=== PATIENT | male | born 1960 | race Caucasian/White ===

== ENCOUNTER 2018-05-08 18:33 | Observation (INO) | payer OTHER ==
[~2018-05-08] VITALS: Ht 185.4 cm; Wt 90.7 kg
[~2018-05-08 18:33] MED LIST: Accupril40 MG PO; CEPH500 PO; Dicyclomine HCl10 MG PO; HYDR25SUP PR; Hydrocodone-Ap1 EA20 PO; LISI5 PO; Naprosyn500 MG PO; Norco 5-325 Ta1 EACH PO; Norco 7.5-3251 EACH PO; OMEP40CA12 PO; OXYC5; Percocet 10-321 EACH PO; Percocet 5-3251 EACH PO; Procto-Kit28.35 G1 PR; SUCR1 PO; Veetids 500500 MG PO; Zofran Odt4 MG SL; Zofran4 MG PO
[2018-05-08 19:29] LABS: BASOPHILS ABSOLUTE AUTO 0.05 K/mm3 (0.00-0.23); BASOPHILS PERCENT AUTO 1 % (0-2); EOSINOPHILS ABSOLUTE AUTO 0.21 K/mm3 (0.00-0.68); EOSINOPHILS PERCENT AUTO 3 % (0-6); Hematocrit 46.7 % (37.0-53.0); Hemoglobin 15.5 g/dL (13.5-17.5); IMMATURE GRAN ABSOLUTE AUTO 0.02 K/mm3 (0.00-0.10); IMMATURE GRAN PERCENT AUTO 0 % (0-1); LYMPHOCYTES ABSOLUTE AUTO 1.48 K/mm3 (0.84-5.20); LYMPHOCYTES PERCENT AUTO 18 % (21-46); MONOCYTES ABSOLUTE AUTO 0.95 K/mm3 (0.16-1.47); MONOCYTES PERCENT AUTO 12 % (4-13); Mean Corpuscular HGB 29.2 pg (26.0-34.0); Mean Corpuscular HGB Conc 33.2 g/dL (31.5-36.5); Mean Corpuscular Volume 88 fL (80-100); Mean Platelet Volume 9.3 fL (9.1-12.4); NEUTROPHILS ABSOLUTE AUTO 5.35 K/mm3 (1.96-9.15); NEUTROPHILS PERCENT AUTO 66 % (41-73); Platelet Count 287 K/mm3 (150-400); RDW Coefficient Variation 13.4 % (11.7-14.2); RDW Standard Deviation 43.3 fL (35.1-46.3); White Blood Cell Count 8.06 K/mm3 (4.00-11.30)
[2018-05-08 19:54] LABS: Alanine Aminotransfer (ALT/SGP 39 U/L (12-78); Albumin, Blood 4.2 g/dL (3.4-5.0); Alk Phos 91 U/L (50-136); Anion Gap 8 mmol/L (6-16); Aspartate Aminotrans (AST/SGOT 33 U/L (12-37); Bilirubin, Total 0.5 mg/dL (0.1-1.0); Blood Urea Nitrogen 15 mg/dL (8-24); Bun/Creatinine Ratio 15.4 (12.0-20.0); CO2, Blood 28 mmol/L (21-32); Calcium, Blood 9.8 mg/dL (8.5-10.1); Chloride, Blood 104 mmol/L (98-108); Creatinine, Blood 0.98 mg/dL (0.60-1.20); Ethanol (Alcohol), Blood, Med 4 mg/dL; Globulin, Blood 4.2 g/dL (2.2-4.0); Glomerular Filtration Rate >60 (60-); Glucose, Blood 122 mg/dL (70-99); Potassium, Blood 3.6 mmol/L (3.5-5.5); Salicylate <1.7 mg/dL (2.8-20.0); Sodium, Blood 140 mmol/L (136-145); Total Protein, Blood 8.4 g/dL (6.4-8.2)
[2018-05-08 19:59] LABS: Acetaminophen, Random <2.0 ug/mL (10.0-30.0)
[2018-05-08 20:41] LABS: Source, Urine Clean Catch
[2018-05-08 20:44] LABS: Bilirubin, Urine Neg (Neg); Blood, Urine Neg (Neg); Glucose Qualitative, Urine Neg (Neg); Ketones, Urine Neg (Neg); Leukocyte Esterase, Urine Neg (Neg); Nitrite, Urine Neg (Neg); Protein, Urine Neg (Neg); Urobilinogen, Urine NORM (Normal)
[2018-05-08 21:00] LABS: Appearance, Urine Clear (Clear); Color, Urine Yellow (P-Yellow)
[2018-05-08 21:14] LABS: U Amphetamine Screen DETECTED; U Barbituate Screen Not Detected; U Benzodiazapine Screen Not Detected; U Buprenorphine Screen Not Detected; U Cannabinoids Screen DETECTED; U Cocaine Screen Not Detected; U Methadone Screen Not Detected; U Methamphetamine Screen Not Detected; U Opiates Screen Not Detected; U Oxycodone Screen Not Detected; U Phencyclidine Screen Not Detected; U Propoxyphene Screen Not Detected
[2018-05-08] MEDS ORDERED: Prilosec Otc20 MG PO (21:47)
== END 2018-05-10 13:09 | disposition home or self-care (01) ==
LOC: ER 18:33 → EOR 18:34
PROVIDERS: Physician Assistant; ADMIT Emergency Medicine
DX: F15.14 Other stimulant abuse with stimulant-induced mood disorder (principal); F32.9 Major depressive disorder, single episode, unspecified; I25.2 Old myocardial infarction; Z91.041 Radiographic dye allergy status; Z88.2 Allergy status to sulfonamides; Z88.5 Allergy status to narcotic agent; Z79.899 Other long term (current) drug therapy; Z87.891 Personal history of nicotine dependence
CPT/HCPCS: 36415; 80053; 81003; 84443; 85025; 93005; 93010; 99285-25; G0378; G0480; Q3014

== ENCOUNTER 2020-09-04 14:10 | Observation (INO) | payer OTHER ==
[~2020-09-04] VITALS: Ht 185.4 cm; Wt 99.0 kg
[~2020-09-04 14:10] MED LIST changes: +Prilosec Otc20 MG PO
[2020-09-04 15:13] LABS: BASOPHILS ABSOLUTE AUTO 0.06 K/mm3 (0.00-0.23); BASOPHILS PERCENT AUTO 1 % (0-2); EOSINOPHILS ABSOLUTE AUTO 0.27 K/mm3 (0.00-0.68); EOSINOPHILS PERCENT AUTO 4 % (0-6); Hemoglobin 15.6 g/dL (13.5-17.5); IMMATURE GRAN ABSOLUTE AUTO 0.02 K/mm3 (0.00-0.10); IMMATURE GRAN PERCENT AUTO 0 % (0-1); LYMPHOCYTES ABSOLUTE AUTO 1.84 K/mm3 (0.84-5.20); LYMPHOCYTES PERCENT AUTO 24 % (21-46); MONOCYTES ABSOLUTE AUTO 1.02 K/mm3 (0.16-1.47); MONOCYTES PERCENT AUTO 13 % (4-13); Mean Corpuscular HGB 29.4 pg (26.0-34.0); Mean Corpuscular HGB Conc 33.9 g/dL (31.5-36.5); Mean Corpuscular Volume 87 fL (80-100); Mean Platelet Volume 9.4 fL (9.1-12.4); NEUTROPHILS ABSOLUTE AUTO 4.49 K/mm3 (1.96-9.15); NEUTROPHILS PERCENT AUTO 58 % (41-73); Platelet Count 277 K/mm3 (150-400); RDW Coefficient Variation 13.9 % (11.7-14.2); RDW Standard Deviation 44.7 fL (35.1-46.3)
[2020-09-04 15:38] LABS: Alanine Aminotransfer (ALT/SGP 50 U/L (12-78); Albumin, Blood 3.8 g/dL (3.4-5.0); Alk Phos 88 U/L (50-136); Anion Gap 6 mmol/L (6-16); Aspartate Aminotrans (AST/SGOT 32 U/L (12-37); Bilirubin, Total 0.5 mg/dL (0.1-1.0); Blood Urea Nitrogen 14 mg/dL (8-24); CO2, Blood 23 mmol/L (21-32); Chloride, Blood 109 mmol/L (98-108); Creatinine, Blood 1.17 mg/dL (0.60-1.20); Globulin, Blood 3.9 g/dL (2.2-4.0); Glomerular Filtration Rate >60 (60-); Glucose, Blood 98 mg/dL (70-99); Potassium, Blood 4.4 mmol/L (3.5-5.5); Sodium, Blood 138 mmol/L (136-145); Total Protein, Blood 7.7 g/dL (6.4-8.2); Troponin I <0.015 ng/mL (0.000-0.040)
[2020-09-04] MEDS ORDERED: AMLODIPINE BES2.5 MG PO (17:56)
[2020-09-04] MEDS ORDERED: LIPITOR80 MG PO (17:56)
[2020-09-04] MEDS ORDERED: Bentyl20 MG PO (17:57)
[2020-09-04] MEDS ORDERED: PLAVIX75 MG PO (17:57)
[2020-09-04] MEDS ORDERED: CARVEDILOL3.125 MG PO (17:57)
[2020-09-04] MEDS ORDERED: LISI20 PO (17:57)
[2020-09-04] MEDS ORDERED: DEXILANT60 MG PO (17:57)
[2020-09-04 20:20] LABS: Prothrombin Time Results 10.8 Sec (9.7-11.5)
[2020-09-05 03:21] LABS: BASOPHILS ABSOLUTE AUTO 0.07 K/mm3 (0.00-0.23); BASOPHILS PERCENT AUTO 1 % (0-2); EOSINOPHILS ABSOLUTE AUTO 0.27 K/mm3 (0.00-0.68); EOSINOPHILS PERCENT AUTO 4 % (0-6); Hematocrit 42.8 % (37.0-53.0); Hemoglobin 14.5 g/dL (13.5-17.5); IMMATURE GRAN ABSOLUTE AUTO 0.02 K/mm3 (0.00-0.10); IMMATURE GRAN PERCENT AUTO 0 % (0-1); LYMPHOCYTES ABSOLUTE AUTO 2.24 K/mm3 (0.84-5.20); LYMPHOCYTES PERCENT AUTO 36 % (21-46); MONOCYTES ABSOLUTE AUTO 0.69 K/mm3 (0.16-1.47); MONOCYTES PERCENT AUTO 11 % (4-13); Mean Corpuscular HGB 29.7 pg (26.0-34.0); Mean Corpuscular HGB Conc 33.9 g/dL (31.5-36.5); Mean Corpuscular Volume 88 fL (80-100); Mean Platelet Volume 9.7 fL (9.1-12.4); NEUTROPHILS ABSOLUTE AUTO 2.89 K/mm3 (1.96-9.15); NEUTROPHILS PERCENT AUTO 47 % (41-73); Platelet Count 236 K/mm3 (150-400); RDW Coefficient Variation 14.1 % (11.7-14.2); Red Blood Cell Count 4.89 M/mm3 (4.30-5.90); White Blood Cell Count 6.18 K/mm3 (4.00-11.30)
[2020-09-05 03:44] LABS: Alanine Aminotransfer (ALT/SGP 47 U/L (12-78); Albumin, Blood 3.5 g/dL (3.4-5.0); Alk Phos 81 U/L (50-136); Anion Gap 5 mmol/L (6-16); Aspartate Aminotrans (AST/SGOT 26 U/L (12-37); Bilirubin, Total 0.7 mg/dL (0.1-1.0); Blood Urea Nitrogen 15 mg/dL (8-24); Bun/Creatinine Ratio 11.9 (12.0-20.0); CO2, Blood 25 mmol/L (21-32); Calcium, Blood 8.7 mg/dL (8.5-10.1); Chloride, Blood 108 mmol/L (98-108); Creatinine, Blood 1.26 mg/dL (0.60-1.20); Globulin, Blood 3.5 g/dL (2.2-4.0); Glomerular Filtration Rate >60 (60-); Glucose, Blood 97 mg/dL (70-99); Potassium, Blood 4.3 mmol/L (3.5-5.5); Sodium, Blood 138 mmol/L (136-145)
[2020-09-05 07:51] LABS: U Amphetamine Screen Not Detected; U Barbituate Screen Not Detected; U Methamphetamine Screen Not Detected
[2020-09-05 07:52] LABS: U Benzodiazapine Screen DETECTED; U Buprenorphine Screen Not Detected; U Cannabinoids Screen DETECTED; U Cocaine Screen Not Detected; U Methadone Screen Not Detected; U Opiates Screen Not Detected; U Oxycodone Screen Not Detected; U Phencyclidine Screen Not Detected; U Propoxyphene Screen Not Detected
[2020-09-05] MEDS ORDERED: OMEP20ER PO (09:29)
--- NOTE | 2020-09-05 11:10 | NUR ---
Echocardiogram completed.
--- NOTE | 2020-09-05 17:05 | NUR ---
SHIFT SUMMARY PT IS AOX4. PT MEDICATED X2 FOR PAIN AND X1 FOR NAUSEA THIS SHIFT. PT IS INDEPENDENT IN ROOM. PT HAD ECHO PROCEDURE AND STRESS TEST DONE TODAY. PT TELE HAS BEEN NSR TO BRADYCARDIA LOW 45. APPETITE IS GOOD. PT DID NOT HAVE VISITORS THIS SHIFT. PLAN IS FOR CONTINUED CARDIOLOGY INTERVENTION. PT IS IN BED, CALL LIGHT IN REACH, BED IN LOW POSITION.
--- NOTE | 2020-09-05 20:39 | NUR ---
ASSUMED CARE. AOX3, INDEPENDENT IN THE ROOM. CHEST PAIN MID STERNUM "FEELS LIKE A SQUEEZE". PAIN AVERAGE IS 6-7. ADMINISTERED TYELNOL PER REQUEST. "THEY SAID ITS INFLAMMATION". DISCUSSED LOW SALT DIET, MONITORING FAT INTAKE. GETTING HIS CHOLESTROL LEVELS UNDER CONTROL. NO SOB AT THIS TIME. LUNG SOUNDS ARE CLEAR. SINUS ON TELE. NO HEADACHES, LIGHTHEADNESS, OR PALPITIONS. CALL LIGHT IS IN REACH.
--- NOTE | 2020-09-05 21:20 | NUR ---
MEDICATED FOR PAIN AND NAUSEA PAIN MEDICATION CAUSES HIM TO HAVE IT. GAVE HIM SHOWER SUPPLIES. DENIES ANYTHING ELSE FOR THE NIGHT.
--- NOTE | 2020-09-05 22:00 | NUR ---
STATES HE FEELS MUCH BETTER ONLY DID A SPONGE DOWN CLEANING BUT HE DID PUT HIS HEAD IN THE SHOWER. WILL CONTINUE TO MONITOR.
--- NOTE | 2020-09-06 05:33 | NUR ---
SHIFT SUMMARY: AOX3, INDEPENDENT. REPORTS PAIN THAT IS MORE LIKE A SQUEEZE MID STERNUM ONLY. NO RADIATING OF THE PAIN. NO SOB THIS SHIFT. VS HAVE ALL BEEN STABLE. TELE REPORTED SINUS IN THE 70'S. NO CHANGE IN THE PAIN WHEN HE GETS UP AND MOVES AROUND. TROPONIN'S NEGATIVE. ABLE TO TAKE PAIN MEDICATION LONG HE TAKES ZOFRAN SO HE DOES NOT GET NAUSEATED. NO OTHER CHANGES TO NOTE. CALL LIGHT IN REACH.
[2020-09-06 05:37] LABS: Alanine Aminotransfer (ALT/SGP 45 U/L (12-78); Albumin, Blood 3.4 g/dL (3.4-5.0); Alk Phos 79 U/L (50-136); Anion Gap 6 mmol/L (6-16); Aspartate Aminotrans (AST/SGOT 26 U/L (12-37); Bilirubin, Total 0.4 mg/dL (0.1-1.0); Blood Urea Nitrogen 16 mg/dL (8-24); Bun/Creatinine Ratio 12.8 (12.0-20.0); CO2, Blood 24 mmol/L (21-32); Calcium, Blood 8.8 mg/dL (8.5-10.1); Chloride, Blood 107 mmol/L (98-108); Creatinine, Blood 1.25 mg/dL (0.60-1.20); Globulin, Blood 3.5 g/dL (2.2-4.0); Glomerular Filtration Rate >60 (60-); Glucose, Blood 107 mg/dL (70-99); Potassium, Blood 4.2 mmol/L (3.5-5.5); Sodium, Blood 137 mmol/L (136-145); Total Protein, Blood 6.9 g/dL (6.4-8.2)
[2020-09-06] MEDS ORDERED: Lisinopril2.5 MG PO (11:14)
[2020-09-06] MEDS ORDERED: ASPI81CH PO (11:16)
--- NOTE | 2020-09-06 11:54 | NUR ---
DISCHARGE PT DC'D AT 1150. PT IS A/O X4, IND IN ROOM AND HALLWAY. PT REPORTS NO QUESTIONS OR CONCERNS REGARDING DC INFORMATION. REVIEWED UPDADTED MED LIST AND DC INSTRUCTIONS WITH PT. MEDS FAXED TO [facility] PER PT REQUEST. IV'S X2 DC'D WNL. INSTRUCTIONS SENT WITH PT. PT DECLINED RIDE OUT; REPORTS FAMILY IS PICKING HIM UP ANY TIME. PERSONAL BELONGINGS SENT WITH PT.
== END 2020-09-06 12:01 | disposition home or self-care (01) ==
LOC: ER 14:10 → ERHOLD 14:11 → MEDS 09-05 09:04
PROVIDERS: Emergency Medicine; ADMIT Family Medicine
DX: R07.9 Chest pain, unspecified (principal); R06.00 Dyspnea, unspecified; I25.10 Atherosclerotic heart disease of native coronary artery without angina pectoris; I25.2 Old myocardial infarction; I10 Essential (primary) hypertension; N40.0 Benign prostatic hyperplasia without lower urinary tract symptoms; I95.9 Hypotension, unspecified; F41.9 Anxiety disorder, unspecified; F32.9 Major depressive disorder, single episode, unspecified; K21.9 Gastro-esophageal reflux disease without esophagitis; F15.11 Other stimulant abuse, in remission; Z87.891 Personal history of nicotine dependence; Z79.02 Long term (current) use of antithrombotics/antiplatelets; Z95.5 Presence of coronary angioplasty implant and graft; Z86.16 Personal history of COVID-19
CPT/HCPCS: 36415; 71045; 78452; 80053; 83690; 83880; 84484; 85025; 85610; 85730; 93005; 93010; 93017; 93306; 96365; 96366; 96368; 96375; 96376; 99285-25; A9270; A9500; C9113; G0378; J1644; J2405; J2785; J3010

== ENCOUNTER 2020-10-21 15:47 | Emergency (ER) | payer OTHER ==
[~2020-10-21] VITALS: Ht 185.4 cm; Wt 95.2 kg
[~2020-10-21 15:47] MED LIST changes: +AMLODIPINE BES2.5 MG PO; +ASPI81CH PO; +Bentyl20 MG PO; +CARVEDILOL3.125 MG PO; +DEXILANT60 MG PO; +LIPITOR80 MG PO; +LISI20 PO; +Lisinopril2.5 MG PO; +OMEP20ER PO; +PLAVIX75 MG PO
[2020-10-21 16:37] LABS: BASOPHILS ABSOLUTE AUTO 0.04 K/mm3 (0.00-0.23); BASOPHILS PERCENT AUTO 1 % (0-2); EOSINOPHILS ABSOLUTE AUTO 0.17 K/mm3 (0.00-0.68); EOSINOPHILS PERCENT AUTO 3 % (0-6); Hematocrit 45.5 % (37.0-53.0); Hemoglobin 15.3 g/dL (13.5-17.5); IMMATURE GRAN ABSOLUTE AUTO 0.01 K/mm3 (0.00-0.10); IMMATURE GRAN PERCENT AUTO 0 % (0-1); LYMPHOCYTES ABSOLUTE AUTO 1.34 K/mm3 (0.84-5.20); LYMPHOCYTES PERCENT AUTO 23 % (21-46); MONOCYTES ABSOLUTE AUTO 0.55 K/mm3 (0.16-1.47); MONOCYTES PERCENT AUTO 10 % (4-13); Mean Corpuscular HGB 29.8 pg (26.0-34.0); Mean Corpuscular HGB Conc 33.6 g/dL (31.5-36.5); Mean Corpuscular Volume 89 fL (80-100); Mean Platelet Volume 9.7 fL (9.1-12.4); NEUTROPHILS PERCENT AUTO 64 % (41-73); Platelet Count 297 K/mm3 (150-400); RDW Coefficient Variation 13.2 % (11.7-14.2); RDW Standard Deviation 43.1 fL (35.1-46.3); Red Blood Cell Count 5.13 M/mm3 (4.30-5.90); White Blood Cell Count 5.81 K/mm3 (4.00-11.30)
[2020-10-21 16:56] LABS: Alanine Aminotransfer (ALT/SGP 41 U/L (12-78); Albumin, Blood 3.8 g/dL (3.4-5.0); Alk Phos 88 U/L (50-136); Anion Gap 5 mmol/L (6-16); Aspartate Aminotrans (AST/SGOT 27 U/L (12-37); Bilirubin, Total 0.5 mg/dL (0.1-1.0); Blood Urea Nitrogen 11 mg/dL (8-24); Bun/Creatinine Ratio 9.1 (12.0-20.0); CO2, Blood 27 mmol/L (21-32); Calcium, Blood 8.9 mg/dL (8.5-10.1); Chloride, Blood 106 mmol/L (98-108); Creatinine, Blood 1.21 mg/dL (0.60-1.20); Globulin, Blood 3.9 g/dL (2.2-4.0); Glomerular Filtration Rate >60 (60-); Glucose, Blood 92 mg/dL (70-99); Sodium, Blood 138 mmol/L (136-145); Total Protein, Blood 7.7 g/dL (6.4-8.2); Troponin I <0.015 ng/mL (0.000-0.040)
[2020-10-21] MEDS ORDERED: LISI20 PO (17:01)
[2020-10-21] MEDS ORDERED: OMEP20ER PO (17:01)
[2020-10-21] MEDS ORDERED: SUCR1 PO (18:00)
== END 2020-10-21 18:10 | disposition home or self-care (01) ==
LOC: ER 15:47
PROVIDERS: Physician Assistant
DX: K20.90 Esophagitis, unspecified without bleeding (principal); R07.89 Other chest pain; I25.2 Old myocardial infarction; Z86.16 Personal history of COVID-19; Z87.891 Personal history of nicotine dependence; Z91.041 Radiographic dye allergy status; Z88.2 Allergy status to sulfonamides; Z79.02 Long term (current) use of antithrombotics/antiplatelets; Z79.899 Other long term (current) drug therapy
CPT/HCPCS: 36415; 71046; 80053; 84484; 85025; 93005; 93010; 99285-25; A9270

== ENCOUNTER 2021-08-31 21:28 | Emergency (ER) | payer MEDICARE ==
[~2021-08-31] VITALS: Ht 185.4 cm; Wt 91.2 kg
[~2021-08-31 21:28] MED LIST changes: +ACET325 PO; +CYMBALTA30 M2 PO; +DOXE25 PO; +ONDA4ODT MM; +OXYC5 PO
[2021-08-31 22:15] LABS: BASOPHILS ABSOLUTE AUTO 0.05 K/mm3 (0.00-0.23); BASOPHILS PERCENT AUTO 1 % (0-2); EOSINOPHILS ABSOLUTE AUTO 0.11 K/mm3 (0.00-0.68); EOSINOPHILS PERCENT AUTO 2 % (0-6); Hemoglobin 13.9 g/dL (13.5-17.5); IMMATURE GRAN ABSOLUTE AUTO 0.02 K/mm3 (0.00-0.10); IMMATURE GRAN PERCENT AUTO 0 % (0-1); LYMPHOCYTES ABSOLUTE AUTO 1.24 K/mm3 (0.84-5.20); LYMPHOCYTES PERCENT AUTO 17 % (21-46); MONOCYTES ABSOLUTE AUTO 0.63 K/mm3 (0.16-1.47); MONOCYTES PERCENT AUTO 9 % (4-13); Mean Corpuscular HGB 28.4 pg (26.0-34.0); Mean Corpuscular HGB Conc 33.1 g/dL (31.5-36.5); Mean Corpuscular Volume 86 fL (80-100); Mean Platelet Volume 9.8 fL (9.1-12.4); NEUTROPHILS ABSOLUTE AUTO 5.09 K/mm3 (1.96-9.15); NEUTROPHILS PERCENT AUTO 71 % (41-73); Platelet Count 266 K/mm3 (150-400); RDW Coefficient Variation 13.2 % (11.7-14.2); RDW Standard Deviation 41.3 fL (35.1-46.3); Red Blood Cell Count 4.89 M/mm3 (4.30-5.90); White Blood Cell Count 7.14 K/mm3 (4.00-11.30)
[2021-08-31 22:38] LABS: Albumin, Blood 3.9 g/dL (3.4-5.0); Albumin/Globulin Ratio 1.1 (0.8-1.8); Bilirubin, Total 0.4 mg/dL (0.1-1.0); Bun/Creatinine Ratio 8.8 (12.0-20.0); Calcium, Blood 9.5 mg/dL (8.5-10.1); Creatinine, Blood 1.14 mg/dL (0.60-1.20); Globulin, Blood 3.6 g/dL (2.2-4.0); Potassium, Blood 3.6 mmol/L (3.5-5.5); Total Protein, Blood 7.5 g/dL (6.4-8.2)
== END 2021-08-31 23:00 | disposition left against medical advice (07) ==
LOC: ER 21:28
PROVIDERS: Student in an Organized Health Care Education/Training Program
DX: R07.9 Chest pain, unspecified (principal); Z53.21 Procedure and treatment not carried out due to patient leaving prior to being seen by health care provider
CPT/HCPCS: 36415; 71045; 80053; 84484; 85025; 93005; 93010; 99282-25

== ENCOUNTER 2022-11-24 18:56 | Inpatient (IN) | payer MEDICARE ==
[~2022-11-24] VITALS: Ht 182.9 cm; Wt 87.4 kg
[~2022-11-24 18:56] MED LIST changes: +NITR.4SL SL
[2022-11-24 19:51] LABS: BASOPHILS ABSOLUTE AUTO 0.05 K/mm3 (0.00-0.23); BASOPHILS PERCENT AUTO 1 % (0-2); EOSINOPHILS ABSOLUTE AUTO 0.23 K/mm3 (0.00-0.68); EOSINOPHILS PERCENT AUTO 3 % (0-6); Hematocrit 42.9 % (37.0-53.0); IMMATURE GRAN ABSOLUTE AUTO 0.02 K/mm3 (0.00-0.10); IMMATURE GRAN PERCENT AUTO 0 % (0-1); LYMPHOCYTES ABSOLUTE AUTO 1.79 K/mm3 (0.84-5.20); LYMPHOCYTES PERCENT AUTO 26 % (21-46); MONOCYTES ABSOLUTE AUTO 0.86 K/mm3 (0.16-1.47); MONOCYTES PERCENT AUTO 12 % (4-13); Mean Corpuscular HGB 27.3 pg (26.0-34.0); Mean Corpuscular HGB Conc 32.6 g/dL (31.5-36.5); Mean Corpuscular Volume 84 fL (80-100); Mean Platelet Volume 9.1 fL (9.1-12.4); NEUTROPHILS ABSOLUTE AUTO 4.03 K/mm3 (1.96-9.15); NEUTROPHILS PERCENT AUTO 58 % (41-73); Platelet Count 288 K/mm3 (150-400); RDW Coefficient Variation 15.3 % (11.7-14.2); RDW Standard Deviation 46.8 fL (35.1-46.3); Red Blood Cell Count 5.13 M/mm3 (4.30-5.90); White Blood Cell Count 6.98 K/mm3 (4.00-11.30)
[2022-11-24 20:13] LABS: Albumin, Blood 3.7 g/dL (3.4-5.0); Albumin/Globulin Ratio 1.1 (0.8-1.8); Bilirubin, Total 0.3 mg/dL (0.1-1.0); Bun/Creatinine Ratio 11.8 (12.0-20.0); Calcium, Blood 9.3 mg/dL (8.5-10.1); Creatinine, Blood 1.1 mg/dL (0.60-1.20); Globulin, Blood 3.4 g/dL (2.2-4.0); Potassium, Blood 4.6 mmol/L (3.5-5.5); Total Protein, Blood 7.1 g/dL (6.4-8.2)
[2022-11-25 03:51] LABS: International Normalized Ratio 1.05
[2022-11-25 09:12] LABS: BASOPHILS ABSOLUTE AUTO 0.05 K/mm3 (0.00-0.23); BASOPHILS PERCENT AUTO 1 % (0-2); EOSINOPHILS ABSOLUTE AUTO 0.31 K/mm3 (0.00-0.68); EOSINOPHILS PERCENT AUTO 5 % (0-6); Hematocrit 43.8 % (37.0-53.0); Hemoglobin 14.2 g/dL (13.5-17.5); IMMATURE GRAN ABSOLUTE AUTO 0.03 K/mm3 (0.00-0.10); IMMATURE GRAN PERCENT AUTO 1 % (0-1); LYMPHOCYTES ABSOLUTE AUTO 1.87 K/mm3 (0.84-5.20); LYMPHOCYTES PERCENT AUTO 31 % (21-46); MONOCYTES ABSOLUTE AUTO 0.76 K/mm3 (0.16-1.47); MONOCYTES PERCENT AUTO 13 % (4-13); Mean Corpuscular HGB 27.4 pg (26.0-34.0); Mean Corpuscular HGB Conc 32.4 g/dL (31.5-36.5); Mean Corpuscular Volume 84 fL (80-100); Mean Platelet Volume 9.9 fL (9.1-12.4); NEUTROPHILS ABSOLUTE AUTO 3.01 K/mm3 (1.96-9.15); NEUTROPHILS PERCENT AUTO 50 % (41-73); Platelet Count 279 K/mm3 (150-400); RDW Coefficient Variation 15.6 % (11.7-14.2); RDW Standard Deviation 47.7 fL (35.1-46.3); Red Blood Cell Count 5.19 M/mm3 (4.30-5.90); White Blood Cell Count 6.03 K/mm3 (4.00-11.30)
[2022-11-25 09:28] LABS: Albumin, Blood 3.8 g/dL (3.4-5.0); Albumin/Globulin Ratio 1.1 (0.8-1.8); Bilirubin, Total 0.5 mg/dL (0.1-1.0); Bun/Creatinine Ratio 11.4 (12.0-20.0); Calcium, Blood 8.7 mg/dL (8.5-10.1); Creatinine, Blood 1.05 mg/dL (0.60-1.20); Globulin, Blood 3.4 g/dL (2.2-4.0); Potassium, Blood 3.9 mmol/L (3.5-5.5); Total Protein, Blood 7.2 g/dL (6.4-8.2)
--- NOTE | 2022-11-25 12:19 | NUR ---
PT ADMITTED TO PCU FROM ER. PT A&OX4, ABLE TO MAKE NEEDS KNOWN. PT WEARS BIFOCAL GLASSES AND TOP DENTURES, HE HAS BOTH IN HIS POSSESION. PT MISSING DIGITS 1-4 ON R HAND. PT STATED HAD CELLULITIS OF HIS R HAND BACK IN OCTOBER, HAND IS STILL HEALING, HAS SMALL BLISTER INBETWEEN INDEX FINGER AND MIDDLE FINGER. PT SBA, SOB W/EXERTION, WEAKNESS, ON HEPARIN DRIP. PT EXPERIENCING UPPER RIGHT CHEST PAIN/PRESSURE WHEN ADMITTED. NITRO GIVEN AT 1240, 1245, AND 1250. MORPHINE WAS GIVEN AFTER THAT, AND PT STATED PAIN WAS ALLEVIATED EXCEPT FOR MILD PRESSURE OF UPPER RIGHT CHEST. PT ORIENTED TO ROOM, EDUCATED BALLAST CLEANING OPERATOR LIGHT, AND EDUCATED TO CALL BEFORE HE GETS UP, PT STATED UNDERSTANDING. PT BELONGINGS IN PATIENT BAG IN HIS ROOM. PT WAS EDUCATED ON FIRE SAFETY, PT STATED HE GAVE HIS MOSAIC WORKER TO HIS DAUGHTER TO TAKE HOME.
[2022-11-25 12:33] VITALS: BP 133/88
[2022-11-25 15:37] VITALS: BP 112/84
--- NOTE | 2022-11-25 15:38 | NUR ---
DR. CALVERT VISITED WITH PT. PT DENIES CHEST PAIN, PT STATED SLIGHT PRESSURE ON RIGHT SIDE OF CHEST. 02 SATURATION ABOVE 93% ON RA, PT DENIES SOB. HR 40'S-50'S, PT STATED THAT IS NORMAL FOR HIM. PT RESTING IN BED, CALL LIGHT WITHIN REACH.
--- NOTE | 2022-11-25 18:05 | NUR ---
SHIFT SUMMARY NO ACUTE CHANGES, SEE PREVIOUS NOTE. PT STATED MILD CHEST PRESSURE UPPER RIGHT CHEST. HR SR 40'S-50'S, PT STATED THAT IS NORMAL FOR HIM. 02 SATURATION ABOVE 93% ON RA, PT SOB WITH EXERTION, DENIES SOB AT REST.HE ATE ABOUT 50% OF HIS DINNER. HE IS VISITING IN HIS ROOM WITH HIS DAUGHTER, CALL LIGHT WITHIN REACH.
[2022-11-25 20:47] VITALS: BP 130/94
[2022-11-25 23:16] VITALS: BP 122/73
[2022-11-26 03:03] VITALS: BP 131/80
--- NOTE | 2022-11-26 04:28 | NUR ---
SHIFT SUMMARY PT IS A&OX4, CALLS APPROPRAITELY, AND IS A SBA IN THE ROOM. ON TELE HE BEEN SB 39-60. HE HAS HAD MINIMAL CHEST DISCOMFORT OVER NIGHT BUT DID GET NAUSEATED AROUND 0300 AND WAS MEDICATED WITH ZOFRAN. HE STATES HIS STOMACH IS HIS COMPLAINT AT THIS TIME. HE HAS BEEN NPO SINCE 0000 FOR AN ANGIO THIS AM. DR. MERCER CAME TO SEE THE PT AND SIGNED THE CONSENT. THE PT DOES HAVE ALLERGIES TO FENTANYL AND SOME CONTRAST DYES. DR. MERCER WAS MADE AWARE. HIS BP'S HAVE BEEN STABLE AND THERE HAS BEEN NO ACUTE EVENTS OVER NIGHT. FIRE IGNITION RISK HAS BEEN EVALUATED AND EDUCATION WAS PROVIDED.
[2022-11-26 05:32] LABS: BASOPHILS ABSOLUTE AUTO 0.06 K/mm3 (0.00-0.23); BASOPHILS PERCENT AUTO 1 % (0-2); EOSINOPHILS PERCENT AUTO 5 % (0-6); Hematocrit 42.4 % (37.0-53.0); Hemoglobin 13.7 g/dL (13.5-17.5); IMMATURE GRAN ABSOLUTE AUTO 0.02 K/mm3 (0.00-0.10); IMMATURE GRAN PERCENT AUTO 0 % (0-1); LYMPHOCYTES ABSOLUTE AUTO 1.12 K/mm3 (0.84-5.20); LYMPHOCYTES PERCENT AUTO 18 % (21-46); MONOCYTES ABSOLUTE AUTO 0.71 K/mm3 (0.16-1.47); MONOCYTES PERCENT AUTO 11 % (4-13); Mean Corpuscular HGB 27.2 pg (26.0-34.0); Mean Corpuscular HGB Conc 32.3 g/dL (31.5-36.5); Mean Corpuscular Volume 84 fL (80-100); Mean Platelet Volume 9.6 fL (9.1-12.4); NEUTROPHILS PERCENT AUTO 65 % (41-73); Platelet Count 261 K/mm3 (150-400); RDW Coefficient Variation 15.5 % (11.7-14.2); RDW Standard Deviation 47.1 fL (35.1-46.3); Red Blood Cell Count 5.03 M/mm3 (4.30-5.90); White Blood Cell Count 6.21 K/mm3 (4.00-11.30)
[2022-11-26 07:13] VITALS: BP 121/83
--- NOTE | 2022-11-26 07:35 | NUR ---
PT SLEEPING WHEN I WALKED INTO HIS ROOM THIS MORNING. A FEW MINUTES AFTER PT WOKE UP HE COMPLAINED OF 7/10 NAUSEA/BURNING ABD PAIN RADIATING UP TO HIS CHEST. PT REPOSITIONED, MEDICATED PER EMAR.
[2022-11-26 12:22] VITALS: BP 138/87
[2022-11-26 14:14] VITALS: BP 148/100
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
--- NOTE | 2022-11-26 17:42 | NUR ---
2 ML REMOVED FROM TR BAND AT 1720.
--- NOTE | 2022-11-26 17:48 | NUR ---
SHIFT SUMMARY PT STARTED OFF THE DAY WITH BURNING ABD PAIN RADIATING UP TO HIS CHEST RIGHT AFTER HE WOKE UP TODAY, MEDICATED PER EMAR. PT SPENT THE MORNING AND EARLY AFTERNOON VISITING WITH HIS DAUGHTER WHILE HE WAITED TO GO TO THE SIDE SEAM ENVELOPE MACHINE OPERATOR. PT WENT TO SIDE SEAM ENVELOPE MACHINE OPERATOR AND CAME BACK WITHIN AN HOUR, NO INERVENTIONS DONE, MEDICAL MANAGEMENT, SEE SIDE SEAM ENVELOPE MACHINE OPERATOR PROCEDURE NOTES. PT GIVEN A SANDWICH AND PEPSI PER HIS REQUEST AFTER SIDE SEAM ENVELOPE MACHINE OPERATOR, PT TOLERATED WELL. PT'S DAUGHTER CAME OUT OF HIS ROOM AND STATED SHE WAS LEAVING AROUND 1600, NOW AT 1757 PT STATED DAUGHTER MAY BE COMING BACK. AFTER HIS DAUGHTER LEFT, PT EXPRESSED SUICIDAL IDEATIONS AND SPIRITUAL STRUGGLE WITH KAJAL BLOUNT. SPIRITUAL CARE IN WITH PT NOW. 2ML AIR REMOVED FROM TR BAND AT 1720 AND 1745. CALL LIGHT WITHIN REACH.
--- NOTE | 2022-11-26 18:33 | NUR ---
Pt provided space to discuss his life in context of guru narrative. Pt has little support, lived with daughter before coming into hospital. Pt found out he will not have place to live when he leaves. 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 Pastoral career guidance counselor was given congruent with what was shared. Pt has a good base of Bible knowledge and engages well in conversation. He requests a supplication and it was provided. He asked if lead technical writer would be available tomorrow. Play Therapist explained he would just need to let nurse know. He verbalized gratitude for the visit.
--- NOTE | 2022-11-26 18:47 | NUR ---
DID NOT INTERRUPT PT AND SPIRITUAL CARE TO RELEASE AIR FROM TR BAND. ALL AIR REMOVED FROM TR BAND AT 1838 ONCE SPIRITUAL CARE LEFT. PT RESTING IN BED, CALL LIGHT WITHIN REACH.
[2022-11-26 20:00] VITALS: BP 124/58
[2022-11-27] VITALS: BP 120/69; BP 138/92
[2022-11-27 04:00] VITALS: BP 120/69
--- NOTE | 2022-11-27 06:12 | NUR ---
SHIFT SUMMARY PT A&O X4. VSS THROUGHOUT SHIFT. PT HR REMAINS SB; 50'S. PT ASYMPTOMATIC, DENIES DIZZINESS OR LIGHTHEADNES. R RADIAL ANGIO SITE WNL, FULLY RECOVERED. ARM BOARD IN PLACE. PT DENIES CP OR PRESSURE T/O SHIFT. PT SLEPT MOST OF THE SHIFT, WAKING UP ON AND OFF TO USE RESTROOM AND EAT SNACKS. PT TOLERATING PO INTAKE WELL. VOIDING INDEPENDENTLY USING URINAL. PT DENIES SI OR HARMFUL THOUGHTS THROUGHOUT THE SHIFT. NO ACUTE CHANGES DURING SHIFT. WILL UPDATE ONCOMING RN.
[2022-11-27 07:59] VITALS: BP 140/90
--- NOTE | 2022-11-27 15:56 | NUR ---
PT TRANSFERRED TO 324 REPORT GIVEN TO TEN RDZ. DAUGHTER AT BEDSIDE DURING THE TRANSFER. NO ACUTE CHANGE SINCE THIS AM PSYCH PROVIDER SAW PT TODAY PLAN FOR INPATIENT PSYCH PLACEMENT FOR TUESDAY. PT WITH NO PLANS OF HARMING SELF TIL OF THIS TIME, PT HAS BEEN INDEPENDENT IN THE ROOM HAD A SHOWER THIS MORNING. VITALS HRR SR 60'S, SBP 140'S, SATS ABOVE 95% ON RA, AFEBRILE. RIGHT RADIAL SITE WITH CLEAR DRESSING INTACT. DENIES ANY CHEST PAIN, NAUSEA OR PALPITATIONS. ADEQUATE FOOD AND FLUID INTAKE. ALL BELONGINGS SENT WITH THE PT. ACCOMPANIED BY PCT VIA WHEELCHAIR
[2022-11-27 16:17] VITALS: BP 142/90
--- NOTE | 2022-11-27 17:56 | NUR ---
SHIFT SUMMARY XFER FROM PCU5; ASSUMED CARE AT 1540. PT A/OX4. PLEASANT AND COOPERATIVE. PT ADMITS TO HAVING THOUGHTS OF WANTING TO BUT DENIES HAVING A PLAN OR DESIRE TO HURT SELF NOW. PT ON LOW SI PRECAUTIONS. NO MITIGATION AT THIS TIME. FEQUENT ROUNDING. PT C/OF NAUSEA; MED PER EMAR. PT VOCALIZED LOOKING FORWARD TO POSSIBLE IN PATIENT TREATMENT.
[2022-11-27 19:15] VITALS: BP 139/83
[2022-11-27 21:07] VITALS: BP 133/82
[2022-11-28 04:55] VITALS: BP 116/80
--- NOTE | 2022-11-28 07:24 | NUR ---
SHIFT SUMMARY PATIENT WITH PATEL EPISODES EARLY IN SHIFT. HR 48-53 OCCAISIONAL 46 HR. PATIENT HAS INTERMITTENT CHEST PRESSURE LAYING IN BED AND GETTING UP TO BATHROOM. DR SINGH MADE AWARE AROUND 1100PM. NO NEW ORDERS. PATIENT STATES HIS HEART RATE GOES INTO 30S AND 40S SOMETIMES WHEN HE IS SLEEPING. NO OTHER ACUTE EVENTS DURING SHIFT.
[2022-11-28 08:32] VITALS: BP 153/96
[2022-11-28 15:26] VITALS: BP 148/85
--- NOTE | 2022-11-28 18:38 | NUR ---
SHIFT SUMMARY; PATIENT MEDICATED X 1 WITH MORPHINE 4MG. PER CHANGE MORPHINE ORDER TO 2-4MG IV Q6 IF NEEDED. ALSO ORDER FOR ZOFRAN 4MG Q8 PRN. PATIENT VERY ANXIOUS DURING DAY AND ASKING FOR STAFF TO COME TO ROOM TO VISIT WHEN HIS DAUGHTER NOT IN ROOM. PATIENT IS ENCOURAGED TO WALK IN [place] HOWEVER ONLY CHOOSING TO WALK IN HALLWAY LATE THIS EVENING WITH DAUGHTER. [facility] CALLS AND CANNOT ACCEPT PATIENT IT WAS MENTIONED IN HIS PSYCH NOTE THAT HE HAD DEMENTIA AND ALSO WAS METH POSITIVE.
[2022-11-28 20:07] VITALS: BP 147/88
--- NOTE | 2022-11-29 04:16 | NUR ---
SHIFT SUMMARY NOC PT A/O X 4. PLEASANT AND COOPERATIVE WITH CARE. NO ACUTE CHANGES TO REPORT. PT ON TELE RUNNING SINUS PATEL @ 54 BPM. PT IS LOW SI RISK CURRENTLY. METH POSITIVE. PT IS WAITING FOR SOLUTION SPECIALIST FOR POSSIBLE PLACEMENT AT [facility] IN [place] FOR IN PT PSYCHIATRIC CARE. PT DAUGHTER STAYED NIGHT WITH PT IN ROOM. PT IS CURRENTLY RESTING WITH BED IN LOWEST POSITION, AND CALL LIGHT WITHIN REACH.
[2022-11-29 04:20] VITALS: BP 121/82
[2022-11-29 07:55] VITALS: BP 121/77
[2022-11-29 15:52] VITALS: BP 116/75
--- NOTE | 2022-11-29 17:01 | NUR ---
SHIFT SUMMARY: PT IS ADMITTED FOR UNSTABLE ANGINA. IS ALERT AND ABLE TO MAKE NEEDS KNOWN. CURRENTLY IN DNR. VITALS ARE STABLE WITH NO COMPLAINTS OF CHEST PAIN. WAS GIVEN PRN MORPHINE X1 FOR ABD PAIN THAT WAS 7/10 TO UPPER CENTER ABD AND LOWER RIGHT THAT WAS EFFECTIVE. PT UP AD JAZMIN DURING SHIFT FOR ADLS TAKING CARE OF SELF WITH MINIMAL TO STANDBY ASSIST. IV TO BI LAT FOR ARM ARE PATENT WITH DRESSINGS CLEAN, DRY AND INTACT. IN REPORT WAS STATED THAT PT HAS MADE STATEMENTS OF HURTING SELF DURING CURRENT STAY. NO STATEMENTS OF A VALID NATURE STATED THIS SHIFT. INCREASE IN REMERON BY JOSE MIGUEL. MD. Fermin THERAPY AND OT EVALS PUT IN. CURRENTLY ON TELEMETRY WHICH REPORTS NORMAL RYMOTHOMS. CASE MANAGEMENT CURRENTLY LOOKING FOR PLACEMENT FOR IN PT REHAB.
[2022-11-29 20:04] VITALS: BP 141/85
--- NOTE | 2022-11-30 00:20 | NUR ---
PT DENIES SI ALTHOUGH STATES HE DOES HAVE THOUGHTS AT TIMES BUT NO CURRENT PLAN.
[2022-11-30 06:07] VITALS: BP 119/78
[2022-11-30 07:42] VITALS: BP 123/82
--- NOTE | 2022-11-30 07:47 | NUR ---
SHIFT SUMMARY PT DID WELL T/O SHIFT. MEDICATED FOR PAIN ONCE. NO INCREASED CP OR SOB, NO CHANGES PER TELE.
--- NOTE | 2022-11-30 14:36 | NUR ---
1410: DR. JERONIMO FANGIED THIS RN PT TO BE PLACED ON MODERATE SI RISK. NOTIFIED BOARD HANDLER AND PLANT MAINTENANCE WORKER. INITIATED 1:1 SITTING WITH PT AND EXPLAINED TO THE PT WHY HE NEEDED 1:1 ON SITTING. PT VU. PT WAS RESTING IN BED LYING ON HIS SIDE AT TIME OF INTERACTION. ONCE FINISHED SPEAKING TO PT, HE RESUMED LAYING DOWN WITH EYES SHUT RR E/U. NO DISTRESS NOTED.
[2022-11-30 15:33] VITALS: BP 121/70
--- NOTE | 2022-11-30 16:20 | NUR ---
SHIFT SUMMARY: PT IS ADMITTED FOR UNSTABLE ANGINA. IS ALERT AND ABLE TO MAKE NEEDS KNOWN. CURRENTLY IN DNR. VITALS ARE STABLE WITH NO COMPLAINTS OF CHEST PAIN. MD GAVE VERBAL TO DC MORPHINE AND START OXY 5 Q6 PRN AND APAP 650 Q6 PRN FOR PAIN. OXY GIVEN X1 THAT WAS EFFECTIVE. WHEN QUESTIONED ABOUT SI PT WAS EVASIVE AND NOT WANTING TO ANSWER AND EXPRESSED FRUSTRATION AT BEING ASKED THE QUESTIONS. THIS AFTER NOON DR. KHAN CHECKED ON PT AND EXPRESSED CONCERN FOR PT BEING EVASIVE TO SI QUESTIONS AND CHANGED SI FROM LOW TO MEDIUM. KAJAL COONEY REPORTED THIS CHANGE TO THIS QUICK SERVICE TECHNICIAN. PT BEING TRANSFERRED TO ROOM 348 DUE TO CHANGE IN SI. CASE MANAGEMENT STILL IN THE PROCESS OF FINDING PLACEMENT OF IN PT CARE AT THIS TIME.
--- NOTE | 2022-11-30 17:19 | NUR ---
PT TRANSFERED OVER TO ROOM 1600. PT HAS BEEN MADE MODERATE SI AND ROOM WAS PREPPED PER PROTOCOL. PT HAS PERSONAL BELONING PUT AWAY. PT IS RESTING IN ROOM WITH SITTER OBSERVING. NO DISTRESS NOTED AT THIS TIME. WILL CONTINUE TO MONITOR.
[2022-11-30 19:48] VITALS: BP 114/71
--- NOTE | 2022-12-01 03:16 | NUR ---
PT IS UP AD JAZMIN, CONTINENT, AOX4, PLEASANT AND HAS A 1:1 SITTER DUE TO SI. UNEVENTFUL NIGHT, PT SLEEPING MOST OF SHIFT. SI PRECAUTIONS IN PLACE. FIRE SAFETY REVIEWED.
[2022-12-01 04:28] VITALS: BP 131/90
[2022-12-01 07:28] VITALS: BP 132/92
[2022-12-01 15:15] VITALS: BP 114/92
--- NOTE | 2022-12-01 17:41 | NUR ---
SHIFT SUMMARY- PT IS A/O, PLESANT AND COOPERATIVE. HE IS EATING AND DRINKING WELL. HE DENIES SI. DR. KHAN SAW THE PT THIS AFTERNOON AND PLANS FOR DISCHARGE HOME WITH DAUGHTER TOMORROW.
[2022-12-01 19:55] VITALS: BP 85/72
--- NOTE | 2022-12-02 04:06 | NUR ---
REPORT RECEIVED, PT A/O COOPERATIVE, SITTER OUT SIDE ROOM TO MOMITOR PT. NO C/O PAIN NOR DISTRESS ASSESSMENT DONE AND UNREMARKABLE. AWAINTING DC FOR TOMORROW.
[2022-12-02 06:15] VITALS: BP 122/84
[2022-12-02 07:30] VITALS: BP 121/81
--- NOTE | 2022-12-02 08:00 | NUR ---
PATIENT RESTING COMFORTABLY SITTER IN DOORWAY OF ROOM. MONITORING PAITENT CLOSELY. PATIENT ROUSES EASILY TO VERBAL STIMULI. ANSWERS SAFETY QUESTIONS AND DENIES ANY THOUGHTS OF SI THIS AM.
[2022-12-02] MEDS ORDERED: METO25ER PO (13:32)
[2022-12-02] MEDS ORDERED: MIRT30 PO (13:37)
[2022-12-02] MEDS ORDERED: PANT20 PO (13:38)
== END 2022-12-02 15:00 | disposition home or self-care (01) | DRG 287 ==
LOC: ER 18:56 → PCU 18:57 → MEDS 18:57 → ERHOLD 18:57 → ER 18:57 → ERHOLD 11-25 01:07 → PCU 11-25 12:18 → ERHOLD 11-25 12:18 → PCU 11-27 10:33 → MEDS 11-27 15:53 → PCU 11-27 15:53 → MEDS 11-30 16:16 → ENPENDDIS 12-02 13:14 → MEDS 12-02 15:00
PROVIDERS: Emergency Medicine; Family Medicine; ADMIT Internal Medicine
PROC: B2111ZZ Fluoroscopy of Multiple Coronary Arteries using Low Osmolar Contrast (ICD-10-PCS; principal; 2022-11-26)
PROC: 4A023N7 Measurement of Cardiac Sampling and Pressure, Left Heart, Percutaneous Approach (ICD-10-PCS; 2022-11-26)
DX: I25.110 Atherosclerotic heart disease of native coronary artery with unstable angina pectoris (principal); I50.22 Chronic systolic (congestive) heart failure; R45.851 Suicidal ideations; R07.9 Chest pain, unspecified; Z66 Do not resuscitate; Z51.5 Encounter for palliative care; R06.01 Orthopnea; I25.5 Ischemic cardiomyopathy; N40.0 Benign prostatic hyperplasia without lower urinary tract symptoms; F15.10 Other stimulant abuse, uncomplicated; I11.0 Hypertensive heart disease with heart failure; F32.9 Major depressive disorder, single episode, unspecified; F41.9 Anxiety disorder, unspecified; E78.5 Hyperlipidemia, unspecified; Z95.5 Presence of coronary angioplasty implant and graft; Z90.49 Acquired absence of other specified parts of digestive tract; I25.2 Old myocardial infarction; Z98.890 Other specified postprocedural states; Z87.891 Personal history of nicotine dependence; Z88.2 Allergy status to sulfonamides; Z88.5 Allergy status to narcotic agent; Z91.041 Radiographic dye allergy status; Z79.899 Other long term (current) drug therapy; Z91.148 Patient's other noncompliance with medication regimen for other reason; Z59.02 Unsheltered homelessness
CPT/HCPCS: 36415; 71046; 76937; 80053; 84484; 85025; 85520; 85610; 93005; 93010; 93458; 94760; 96374; 96375; 96376; 97129; 97165; 99152; 99153; 99285-25; A9270; C1769; C1894; C8929; J0780; J1200; J1644; J1720; J2250; J2270; J2405; J7030; J7050; Q9957; Q9967